=== PATIENT | male | born 1950 | race Caucasian/White ===

== ENCOUNTER 2023-01-30 06:57 | Day surgery (SDC) | payer MEDICARE, BC ==
[2023-01-30] MEDS ORDERED: Lidocaine 1% 4 ML ONE (07:04)
[2023-01-30] MEDS ORDERED: fentaNYL 50 MCG/ML SDV ONE (07:25)
[2023-01-30] MEDS ORDERED: Propofol 200 MG/20 ML SDV ONE (07:25)
[2023-01-30] MEDS ORDERED: Sodium Chloride 0.9% 1,000 ML IV SCH (07:30)
[2023-01-30 09:21] VITALS: BP 154/79; PULSE 51
== END 2023-01-30 09:35 | disposition home or self-care (01) ==
LOC: JP.SDS 06:57
PROVIDERS: ATTEND Surgery
DX: Z12.11 Encounter for screening for malignant neoplasm of colon (principal); K57.30 Diverticulosis of large intestine without perforation or abscess without bleeding; I25.10 Atherosclerotic heart disease of native coronary artery without angina pectoris
CPT/HCPCS: G0121; J2704; J3010; J7030